=== PATIENT | female | born 1995 | race Caucasian/White ===

== ENCOUNTER 2021-03-01 10:30 | Emergency (ER) | payer BC, SELFPAY ==
[2021-03-01 10:42] VITALS: BP 131/79; PULSE 92; RESP 12; TEMP 36.7; O2SAT 99
--- NOTE | 2021-03-01 10:50 | ED.URI ---
HPI - URI/Sore Throat General Chief Complaint: Upper Respiratory Infection Stated Complaint: Sinus Pressure Time Seen by Provider: 03/01/21 10:51 Source: patient and RN notes reviewed Mode of arrival: ambulatory Limitations: no limitations History of Present Illness HPI Narrative: Mame is a 26-year-old female patient who ambulated into the [facility]. Patient states she has a 3-week history of sinus congestion, cough, fever. Patient is currently breast-feeding. Patient is currently using Mucinex [id number] without relief. Patient complains of continued sinus pain and pressure and bilateral ear fullness. MD elicited complaint: nasal congestion Related Data Home Medications Medication Instructions Recorded Confirmed PNV comb no.58-iron bisgly-FA 1 cap PO DAILY 03/01/21 03/01/21 [] sertraline 25 mg PO DAILY 03/01/21 03/01/21 sertraline 50 mg PO DAILY 03/01/21 03/01/21 Allergies Allergy/AdvReac Type Severity Reaction Status Date / Time No Known Allergies Allergy Verified 03/01/21 10:41 Review of Systems Review of Systems: CONSTITUTIONAL: Denies body aches, + fever,denies chills, or sweats. EYES: Denies visual changes, redness, or discharge. ENT: + rhinorrhea, + congestion,denies sore throat, or otalgia. CARDIOVASCULAR: Denies chest pain, palpitations, or edema. RESPIRATORY: + cough odenies dyspnea. GASTROINTESTINAL: Denies abdominal pain, nausea, vomiting, or diarrhea. GENITOURINARY: Denies dysuria or hematuria. SKIN: Denies rash, itching, or wounds. MUSCULOSKELETAL: Denies back pain, joint pain, or myalgia. NEUROLOGIC: Denies headache, numbness, tingling, or weakness. PSYCH: Denies depression or anxiety. All systems reviewed & are unremarkable except as noted in HPI and below PMFSH Comments At time of signature, I have reviewed and agree with nursing past medical, surgical, social and family history unless otherwise noted. Please see nursing chart for further information. There is no relevant family history pertinent to the presenting complaint Exam Narrative: GENERAL: Well-appearing, well-nourished, and in no acute distress. HEAD: Normocephalic, atraumatic. EYES: EOMI. No redness or drainage. Conjunctivae normal. ENT: Mucous membranes pink and dry.. Nasal membranes pale minimal drainage. Tympanic membranes are dull bilaterally with moderate amount of fluid noted. No erythema is noted. Posterior pharynx is erythemic with mild edema. . Uvula midline. Sinus tenderness on the maxillary and frontal area with palpation. NECK: Normal AROM. Supple. Left anterior cervical lymphadenopathy. CHEST: No respiratory distress. Clear to auscultation. MUSCULOSKELETAL: No bony tenderness. EXTREMITIES: Normal range of motion. No edema. SKIN: Warm, dry, no rash. Capillary refill normal. Normal skin turgor. NEURO: No focal deficits. Alert and oriented x3. Gait steady. PSYCH: Normal affect. No signs of depression or anxiety. Course Vital Signs Vital signs: Vital Signs Temperature 36.7 C 03/01/21 10:42 Pulse Rate 92 03/01/21 10:42 Respiratory Rate 12 03/01/21 10:42 Blood Pressure 131/79 03/01/21 10:42 Pulse Oximetry 99 03/01/21 10:42 Temperature 36.7 C 03/01/21 10:42 Pulse Rate 92 03/01/21 10:42 Respiratory Rate 12 03/01/21 10:42 Blood Pressure 131/79 03/01/21 10:42 Pulse Oximetry 99 03/01/21 10:42 Reviewed MDM - URI/Sore Throat MDM Narrative Medical decision making narrative: Patient has had symptoms longer than 3 weeks. Patient has dull tympanic membranes with moderate bulging and fluid bilaterally. Patient has tenderness to her sinuses on palpation. Patient is currently breast-feeding. Patient was given amoxicillin as it is safe for breast-feeding mothers. Patient was also instructed she can continue her Mucinex or start Claritin and Flonase. Follow-up with her primary care physician in 3 to 5 days. Patient was told to increase her fluids.
== END 2021-03-01 11:08 | disposition home or self-care (01) ==
PROVIDERS: Emergency Provider Nurse Practitioner Family; PCP Internal Medicine
DX: J01.10 Acute frontal sinusitis, unspecified (principal)
CPT/HCPCS: 99203; G0463